=== PATIENT | male | born 1935 | race Caucasian/White ===

== ENCOUNTER 2016-09-14 09:10 | Emergency (ER) | payer MEDICARE ==
[2011-02-22 11:45] VITALS: BMI 24.8
[2016-09-14 09:38] LABS: BASOPHILS 0.4 % (0-2); EOSINOPHILS 4.7 % (0-7); HEMATOCRIT 41.1 % (42.0-54.0); HEMOGLOBIN 13.9 g/dL (13.5-17.5); IMMATURE GRANULOCYTES 0.4 % (0-5); LYMPHOCYTES 11.6 % (15-50); MCH 29.7 pg (26.0-34.0); MCHC 33.8 g/dL (31.0-37.0); MCV 87.8 fL (80.0-100.0); MEAN PLATELET VOLUME 10.1 fL (7.4-10.4); MONOCYTES 7.8 % (2-11); NEUTROPHILS 75.1 % (40-80); PLATELET COUNT 94 10x3/uL (130-400); RBC 4.68 10x6/uL (4.20-6.10); RDW 12.9 % (11.5-14.5); WBC 8.1 10x3/uL (4.8-10.8)
[2016-09-14 09:58] LABS: ALBUMIN 2.9 g/dL (3.4-5.0); ALKALINE PHOSPHATASE 124 U/L (46-116); ALT (SGPT) 28 U/L (10-68); BILIRUBIN - TOTAL 0.43 mg/dL (0.2-1.3); CALCIUM 9.1 mg/dL (8.5-10.1); CARBON DIOXIDE 30.4 mmol/L (21.0-32.0); CHLORIDE - SERUM 105 mmol/L (98-107); CREATININE - SERUM 1.6 mg/dL (0.6-1.3); POTASSIUM - SERUM 4.8 mmol/L (3.5-5.1); SODIUM 139 mmol/L (136-145); UREA NITROGEN 27 mg/dL (7-18); eGFR NON AFRICAN AMERICAN 44 mL/min (90-120)
[2016-09-14 10:02] LABS: AMYLASE - SERUM 47 U/L (25-115); CALC OSMOLALITY 288 mosm/kg (275-300); GLUCOSE 205 mg/dL (74-106); LIPASE 164 U/L (73-393); TROPONIN-I < 0.017 ng/mL (0.000-0.060)
== END 2016-09-14 12:35 | disposition home or self-care (01) ==
LOC: D.ER 09:10
PROVIDERS: Family Medicine
DX: K59.00 Constipation, unspecified (principal); K56.41 Fecal impaction; I10 Essential (primary) hypertension; E78.00 Pure hypercholesterolemia, unspecified; E11.9 Type 2 diabetes mellitus without complications; C64.9 Malignant neoplasm of unspecified kidney, except renal pelvis

== ENCOUNTER 2016-09-22 05:00 | Outpatient (CLI) | payer MEDICARE ==
[~2016-09-22] VITALS: Ht 180.3 cm; Wt 85.0 kg
--- NOTE | ~2016-09-22 | HEMODYNAMI ---
PATIENT:FLORENCE MOORE MEDICAL RECORD: [id number] : 37 [id number] ADMISSION DATE: 09/22/16 Generatedon:09/22/201615:35 Patient name: FLORENCE MOORE Patient #: [id number] SSN: : Date of study: 09/22/2016 Page: Of Hemodynamic Procedure Report Patient Data Patient Demographics Procedure consent was obtained First Name: FLORENCE Gender: Male Last Name: OSCAR : 1935 Middle Initial: D Age: 81 year(s) Patient #: [id number] Race: Unknown Additional ID: [id number] Contact details Address: [address] [place] [address] State: [place] City: [facility] Zip code: [address] Past Medical History Allergies: No known allergies Admission Admission Data Admission Date: 09/22/2016 Admission Time: 6:19 Admit Source: Emergency Insurance Payor: Private department health insurance Room #: D.2124 Height (in.): 71 BSA: 2.02 (m2) Height (cm.): 180.34 BMI: 25.1 (kg/m2) Weight (lbs.): 180 Weight (kg.): 81.65 Lab Results Lab Result Date: 09/22/2016 Lab Result Time: 0:00 Biochemistry Name Units Result Min Max Creatinine mg/dl 1.7 --(----)-* 0.6 1.3 CBC Name Units Result Min Max Hemoglobin g/dl 14 --(*---)-- 13.5 17.5 Procedure Procedure Types Cath Procedure Diagnostic Procedure [facility] w/Coronaries PCI Procedure Coronary Stent Initial Miscellaneous Procedures Moderate Sedation up to 30 minutes Procedure Description Procedure Date Procedure Date: 09/22/2016 Procedure Start Time: 15:06 Procedure End Time: 15:35 Procedure Staff Name Function Maya Smart RT Monitor Sotero Lombardo RN Nurse Naif Murphy MD Performing Physician Joel Sargent RT Scrub Seymour Michael RN Nurse Procedure Data Cath Procedure Fluoroscopy Diagnostic fluoroscopy Total fluoroscopy Time: 7.4 time: 7.4 min min Diagnostic fluoroscopy Total fluoroscopy dose: dose: 499.7 mGy 499.7 mGy Contrast Material Contrast Material Type Amount (ml) Isovue 300 112 Entry Location Entry Primary Successful Side Size Upsize Upsize Entry Closure Brewer ccessful Closure Location (Fr) 1 (Fr) 2 (Fr) Remarks Device Remarks Radial Right 6 Fr Mechanical artery Short Compression Estimated blood loss: 10 ml Diagnostic catheters Device Type Used For End Catheter Placement Medtronic Dexterity 5Fr LV Angiography TRAP 4.0 catheter (NO CHARGE) Medtronic Dexterity 5Fr Left Coronary TRAP 4.0 catheter (NO Angiography CHARGE) Medtronic Dexterity 5Fr Right Coronary TRAP 4.0 catheter (NO Angiography CHARGE) Medtronic Dexterity 5Fr LV Angiography Pigtail catheter (NO CHARGE) Procedure Complications No complications Procedure Medications Medication Administration Route Dosage Oxygen NC 2 l/min Heparin Flush Bag added to field 2 bags (1000units/500ml NS) 0.9% NaCl I.V. 100 ml/hr Radial Cocktail added to field 1 syringe (Verapomil 2mg/Nitro 400mcg/Heparin 1500units) Fentanyl I.V. 50 mcg Versed I.V. 1 mg Fentanyl I.V. 50 mcg Versed I.V. 1 mg Radial Cocktail added to field 1 syringe (Verapomil 2mg/Nitro 400mcg/Heparin 1500units) Heparin Bolus I.V. 4000 units Integrilin (Bolus I.V. 7.9 ml 2mg/ml) Integrilin (Bolus wasted 2.1 ml 2mg/ml) Plavix P.O. 600 mg Hemodynamics Rest BSA: 2.02 (m2) HGB: 14 (g/dl) O2 Consumption: Estimated: 212.42 (ml/min) O2 Cons umption indexed: Estimated:105.16 (ml/min/m) Heart Rate: 46 (bpm) Pressure Samples Time Site Value (mmHg) Purpose Heart Use Rate(bpm) 15:09 LV 105/-8,12 EDP 46 15:14 LV 141/9,15 EDP 52 15:15 AO 151/52(84) Pullback 47 15:15 LV 143/7,12 Pullback 47 Gradients Valve Time Site 1 Site 2 Mean SEP/DFP Peak To Heart Use (mmHg) (sec/min) Peak Rate (mmHg) (bpm) Aortic 15:15 LV AO 0 5 0 47 143/7,12 151/52(84) Calculations Valve P-P Mean Valve Index Valve Source Name Gradient Area Flow (cm2) Aortic 0 0 0 0 Snapshots Pre Cath Intra NCS Post Cath Vital Signs Time Heart Resp SPO2 NIBP (mmHg) Rhythm Pain Sedation Rate (ipm) (%) Status Level (bpm) 14:53:36 47 18 96 201/78(159) NSR 0 (11) 10(A) , No pain 15:05:04 46 18 95 182/75(144) NSR 0 (11) 10(A) , No pain 15:09:43 46 18 96 107/53(101) NSR 0 (11) 10(A) , No pain 15:14:56 46 18 93 137/58(110) NSR 0 (11) 9(A) , No pain 15:19:14 47 14 96 135/65(117) NSR 0 (11) 9(A) , No pain 15:23:35 50 16 95 156/75(132) NSR 0 (11) 9(A) , No pain 15:28:05 48 16 96 164/72(128) NSR 0 (11) 9(A) , No pain 15:33:33 48 15 96 154/67(132) NSR 0 (11) 10(A) , No pain Medications Time Medication Route Dose Verified Delivered Reason Note s Effectiveness by by 14:51:36 Oxygen NC 2 l/min Sotero Bey Per physician Grupo Lombardo RN RN 14:51:51 Heparin Flush added 2 bags Sotero Bey used for Bag to Grupo Lombardo RN procedure (1000units/500ml field CARSON NS) 14:52:07 0.9% NaCl I.V. 100 Sotero Bey Per physician ml/hr Grupo Lombardo RN RN 14:52:23 Radial Cocktail added 1 Sotero Bey used for (Verapomil to syringe Grupo Lombardo RN procedure 2mg/Nitro RN 400mcg/Hepari 15:07:58 Radial Cocktail added 1 Sotero Sotero used for (Verapomil to syringe Grupo Lombardo RN procedure 2mg/Nitro field CARSON 400mcg/Heparin 1500units) 15:09:56 Fentanyl I.V. 50 mcg Sotero Sotero for sedation Grupo Lombardo RN RN 15:10:08 Versed I.V. 1 mg Sotero Sotero for sedation Grupo Lombardo RN RN 15:14:29 Fentanyl I.V. 50 mcg Sotero Sotero for sedation Grupo Lombardo RN RN 15:14:35 Versed I.V. 1 mg Sotero Sotero for sedation Grupo Lombardo RN RN 15:15:25 Heparin Bolus I.V. 4000 Sotero Sotero for units Grupo Lombardo RN anticoagulation RN 15:16:18 Integrilin I.V. 7.9 ml Sotero Sotero for (Bolus 2mg/ml) Grupo Lombardo RN antiplatelet RN therapy 15:16:30 Integrilin wasted 2.1 ml Sotero Sotero for (Bolus 2mg/ml) Grupo Lombardo RN antiplatelet RN therapy 15:34:15 Plavix P.O. 600 mg Sotero Sotero for Grupo Lombardo RN antiplatelet RN therapy Procedure Log Time Note 14:34:13 Informed consent obtained and on chart 14:34:37 Sotero Lombardo RN sent for patient. Start room use. 14:41:58 Time tracking: Regular hours 14:42:01 Plan of Care:Hemodynamics will remain stable., Cardiac rhythm will remain stable., Comfort level will be maintained., Respiratory function will remain adequate., Patient/ family verbilizes understanding of procedure., Procedure tolerated without complication., Recovers from procedure without complications.. 14:42:49 Patient Height : 180.34 cm 14:42:53 Patient Weight : 81.65 kg 14:43:03 Admit Source: Emergency department 14:43:07 Insurance Payor : Private health insurance 14:43:24 Patient received from PCU to CCL 3 Alert and oriented. Tansferred to table in Supine position. 14:43:25 Warm blankets applied, and tavon hugger turned on for patient comfort. 14:43:26 ECG and BP/O2 sat monitors applied to patient. 14:43:26 Correct patient and procedure confirmed by team. 14:43:43 Full Disclosure recording started 14:44:02 H&P Date Dictated: 09/21/2016 Within 30 days and on chart.. 14:44:03 Pre-procedure instructions explained to patient. 14:44:04 Pre-op teaching completed and patient verbalized understanding. 14:44:05 Family in patients room. 14:51:36 Oxygen 2 l/min NC was administered by Sotero Lombardo RN; Per physician; 14:51:51 Heparin Flush Bag (1000units/500ml NS) 2 bags added to field was administered by Stoero Lombardo RN; used for procedure; 14:52:07 0.9% NaCl 100 ml/hr I.V. was administered by Sotero Lombardo RN; Per physician; 14:52:23 Radial Cocktail (Verapomil 2mg/Nitro 400mcg/Heparin 1500units) 1 syringe added to field was administered by Sotero Lombardo RN; used for procedure; 14:57:33 Patient NPO since Midnight. 14:57:39 Patient allergic to No known allergies 14:57:41 Is the patient allergic to Iodine/contrast media? No. 14:57:44 Is patient on blood thinner?No 14:57:45 Patient diabetic? Yes. 14:57:46 If diabetic: On Metformin? No 14:57:51 Snore? Yes 14:57:51 Previous problem with sedation/anesthesia? No ? 14:57:52 Sleep apnea? No 14:57:53 Deviated septum? No 14:57:54 Opens mouth fully? Yes 14:57:55 Sticks out tongue? Yes 14:57:58 Airway obstruction? Yes COPD 14:58:03 Dentures? Yes Out 14:58:08 Pre procedure: right dorsailis pedis pulse 2+ Normal; easily identifiable; not easily obliterated 14:58:10 Modified Pankaj's test Ulnar < 7 seconds 14:58:11 Patient pain scale 0/10 ?. 14:58:20 IV patent on arrival in left forearm with 0.9% NaCl at [facility]. 14:58:53 Lab Result : Hemoglobin 14 g/dl 14:58:53 Lab Result : Creatinine 1.7 mg/dl 14:58:57 Lab results completed and on chart. 14:59:02 Right Radial & Right Groin area was prepped with chlora-prep and draped in sterile fashion 14:59:03 Sharps counted by scrub and verified by R.N. 14:59:03 Alarms reviewed by R. N. 14:59:13 Use device set Radial Dx 14:59:14 Acist Syringe opened to sterile field. 14:59:15 Terumo 6Fr Slender Glidesheath opened to sterile field. 14:59:15 Bag Decanter opened to sterile field. 14:59:15 Medline Cath Pack opened to sterile field. 14:59:16 Acist Hand Control opened to sterile field. 14:59:16 St Praneeth 260cm J .035 wire opened to sterile field. 14:59:17 Tegaderm 4 x 4 opened to sterile field. 14:59:17 Acist Manifold opened to sterile field. 14:59:18 MBrace Wrist Support opened to sterile field. 15:01:57 Full Disclosure recording stopped 15:02:39 Vital chart was started 15:02:54 Full Disclosure recording started 15:02:58 Rhythm: sinus bradycardia 15:04:15 Final Timeout: patient, procedure, and site verified with staff and physician. All members of the team are in agreement. 15:04:19 Right Radial site verified by team. 15:04:23 Physical assessment completed. ASA score P 2 - A patient with mild systemic disease as per Naif Murphy MD. 15:04:27 Sedation plan: IV Moderate Sedation Versed, Fentanyl 15:05:32 Procedure started. 15:05:43 Baseline sample Acquired. 15:06:21 Local anesthetic to right radial artery with Lidocaine 2% by Naif Murphy MD.INITIAL ACCESS ONLY 15:07:12 Zero performed for pressure channel P1 15:07:29 A 6 Fr Short sheath was inserted into the Right Radial artery 15:07:58 Radial Cocktail (Verapomil 2mg/Nitro 400mcg/Heparin 1500units) 1 syringe added to field was administered by Sotero Lombardo RN; used for procedure; 15:08:06 A Medtronic Dexterity 5Fr TRAP 4.0 catheter (NO CHARGE) was advanced over the wire and used for LV Angiography. 15:09:08 LV gram done using LOMELI 15:09:09 LV hemodynamics recorded. 15:09:11 Injector settings: Ml/sec: 5, Volume: 15, 15:09:56 Fentanyl 50 mcg I.V. was administered by Sotero Lombardo RN; for sedation; 15:10:08 Versed 1 mg I.V. was administered by Sotero Lombardo RN; for sedation; 15:10:24 A Medtronic Dexterity 5Fr TRAP 4.0 catheter (NO CHARGE) was advanced over the wire and used for Left Coronary Angiography. 15:11:43 A Medtronic Dexterity 5Fr TRAP 4.0 catheter (NO CHARGE) was advanced over the wire and used for Right Coronary Angiography. 15:11:59 Catheter removed. 15:12:30 A Medtronic Dexterity 5Fr Pigtail catheter (NO CHARGE) was advanced over the wire and used for LV Angiography. 15:14:29 Fentanyl 50 mcg I.V. was administered by Sotero Lombardo RN; for sedation; 15:14:34 Injector settings: Ml/sec: 10, Volume: 20, 15:14:35 Versed 1 mg I.V. was administered by Sotero Lombardo RN; for sedation; 15:14:45 EF : 55 % 15:15:13 Catheter removed. 15:15:25 Heparin Bolus 4000 units I.V. was administered by Sotero Lombardo RN; for anticoagulation; 15:15:47 Swift [place] 300cm 0.014 guide wire opened to sterile field. 15:15:48 LOOKCAST BasixCompak Inflation Kit opened to sterile field. 15:16:18 Integrilin (Bolus 2mg/ml) 7.9 ml I.V. was administered by Sotero Lombardo RN; for antiplatelet therapy; 15:16:30 Integrilin (Bolus 2mg/ml) 2.1 ml wasted was administered by Sotero Lombardo RN; for antiplatelet therapy; 15:16:39 6 Fr XBLAD 3.5 guide catheter was inserted over the wire 15:16:45 Cordis 6FR XBLAD 3.5 guide catheter opened to sterile field. 15:18:53 [place] wire advanced. 15:21:04 Inflation Number: 1 A Medtronic Integrity 3.0 X 12 stent was prepped and advanced across the Prox LAD. The stent was deployed at 14 MAURIZIO for 0:37 (min:sec). 15:22:49 Swift Whisper J 300cm 0.014 guide wire opened to sterile field. 15:22:59 Wire removed. 15:23:07 Whisper wire advanced. 15:23:42 Wire redirected to Diag. 15:24:50 Stent catheter was removed intact over wire. 15:27:20 The [place] SwarmBuild Lynn 2.0 X 9 balloon was advanced and then removed because of failure to cross lesion 15:27:26 Wire removed. 15::27 Guide catheter removed. 15:27:45 Sheath removed intact; hemostasis achieved with Mechanical Compression to the Right Radial artery. 15::55 Terumo TR Band Standard opened to sterile field. 15:27:58 Procedure ended.(Physican Out) 15::31 Fluoroscopy time 07.40 minutes. 15::36 Fluoroscopy dose: 499.7 mGy 15::36 Flurop Dose total: 499.7 15::42 Contrast amount:Isovue 300 112ml. 15:29:43 Sharps counted by scrub and verified by R.N. 15:30:07 TR band inflated with 12cc of air. 15:30:08 Insertion/operative site no bleeding no hematoma. 15:30:16 Post right radial artery:stable, clean and dry 15:30:22 Post Procedure Pulses reassessed and unchanged 15::42 Post-procedure physical assessment completed. ASA score P 2 - A patient with mild systemic disease as per Naif Murphy MD. 15:30:50 Post procedure rhythm: unchanged. 15:30:53 Estimated blood loss: 10 ml 15:31:02 Post procedure instruction explained to patient.Patient verbalizes understanding. 15:31:02 Patient needs reinforcement of post procedure teaching. 15:31:17 Procedure type changed to Cath procedure, Diagnostic procedure, LHC, LHC w/Coronaries, PCI procedure, Coronary Stent Initial, Miscellaneous Procedures, Moderate Sedation up to 30 minutes 15:31:22 Procedure Complication : No complications 15:31:24 See physician's report for complete and final results. 15:32:27 Procedure and supply charges have been captured, reviewed, submitted and are correct. 15:34:15 Plavix 600 mg P.O. was administered by Sotero Lombardo RN; for antiplatelet therapy; 15:35:11 Vital chart was stopped 15:35:15 Report given to PCU. 15:35:18 Patient transfered to PCU with Bed. 15:35:29 Procedure ended. 15:35:29 Full Disclosure recording stopped 15:35:34 End room use (Document Last) Intervention Summary Intervention Notes Time ActionType Lesion and Equipment Action# Pressure Duration Attributes Used 15:21:04 Place stent Prox LAD Medtronic 1 14 00:37 Integrity 3.0 X 12 stent 15:27:20 Discard [place] Balloon Sci Lynn 2.0 X 9 balloon Device Usage Item Name Manufacture Quantity Catalog Number Hospital Part Current Mini mal Lot# / Charge Number Stock Stock Serial# Code Acist Acist 1 37131 828435 170156 [id number] 20 Syringe Medical Systems Inc Medline Cardinal 1 [id number] 379756 44713 570202 5 Cath Pack Health Bag Microtek 1 2002S 722307 81865 276635 5 Spatial Information Solutions Inc. Terumo 6Fr Terumo 1 [id number] 107885 795418 627125 [address] St Praneeth 1 [id number] 426480 879770 875513 30 260cm J .035 wire Acist Hand Acist 1 74934 610541 236814 255036 5 Control Medical Systems Inc Acist Acist 1 26645 689920 932723 906664 5 Manifold Medical Systems Inc Tegaderm 4 3M 1 1626W 986857 227454 687572 5 x 4 MBrace Advanced 1 140-0250-00 888199 19947 923256 5 Wrist Vascular Support Dynamics Medtronic Medtronic 1 [id number] 155793 089315 5 Dexterity 5Fr TRAP 4.0 catheter (NO CHARGE) Medtronic Medtronic 1 [id number] 943151 424893 5 Dexterity 5Fr Pigtail catheter (NO CHARGE) Swift Swift 1 [id number] 969702 260254 392807 1 [place] Vascular 300cm 0.014 guide wire Merit Merit 1 US1509 137785 963433 516339 15 [facility] Medical Inflation Kit Cordis 6FR Cardinal 1 [id number] 136931 868828 174115 10 XBLAD 3.5 Health guide catheter Medtronic Medtronic 1 [id number] 187320 745290 584508 3 [id number] Integrity 3.0 X 12 stent Swift Swift 1 [id number] 855600 776132 559577 5 Whisper J Vascular 300cm 0.014 guide wire Hamburg Sci Hamburg 1 [id number] 814195 937841 540026 1 [id number] Lynn Scientific 2.0 X 9 balloon Terumo TR Terumo 1 [id number] 054534 652331 111416 40 Band Standard Signature Audit Steward Stage Time Signature Unsigned Intra-Procedure 09/22/2016 Maya 3:35:45 PM Counts RT(R) Signatures Monitor : Maya Signature : Counts RT Date : Time : [address] [place] [address]
[2016-09-22 05:25] LABS: BASOPHILS 0.4 % (0-2); EOSINOPHILS 5.6 % (0-7); HEMATOCRIT 40.9 % (42.0-54.0); IMMATURE GRANULOCYTES 0.9 % (0-5); LYMPHOCYTES 17.4 % (15-50); MCH 29.9 pg (26.0-34.0); MCHC 34.2 g/dL (31.0-37.0); MCV 87.2 fL (80.0-100.0); MEAN PLATELET VOLUME 10.2 fL (7.4-10.4); MONOCYTES 9.6 % (2-11); NEUTROPHILS 66.1 % (40-80); PLATELET COUNT 96 10x3/uL (130-400); RBC 4.69 10x6/uL (4.20-6.10); RDW 12.8 % (11.5-14.5); WBC 7.5 10x3/uL (4.8-10.8)
[2016-09-22 05:59] LABS: ALBUMIN 2.8 g/dL (3.4-5.0); ALKALINE PHOSPHATASE 115 U/L (46-116); ALT (SGPT) 29 U/L (10-68); BILIRUBIN - TOTAL 0.41 mg/dL (0.2-1.3); CALC OSMOLALITY 286 mosm/kg (275-300); CALCIUM 9.2 mg/dL (8.5-10.1); CARBON DIOXIDE 30.7 mmol/L (21.0-32.0); CHLORIDE - SERUM 106 mmol/L (98-107); CREATININE - SERUM 1.7 mg/dL (0.6-1.3); GLUCOSE 171 mg/dL (74-106); POTASSIUM - SERUM 4.3 mmol/L (3.5-5.1); PROTEIN - SERUM 6.1 g/dL (6.4-8.2); SODIUM 140 mmol/L (136-145); UREA NITROGEN 24 mg/dL (7-18); eGFR NON AFRICAN AMERICAN 41 mL/min (90-120)
[2016-09-22 06:01] LABS: CHOL - HDL RATIO 2.7 ratio (2.3-4.9); CHOLESTEROL, TOTAL 112 mg/dL (0-200); CREATINE KINASE 74 UL (21-232); HDL CHOLESTEROL 41 mg/dL (32-96); LDL CHOLESTEROL 50 mg/dL (0-100); LDL-HDL RATIO 1.2 ratio (1.5-3.5); PRO BNP 353 pg/mL (0-450); TRIGLYCERIDE 106 mg/dL (30-200)
[2016-09-22 06:02] LABS: TROPONIN-I < 0.017 ng/mL (0.000-0.060)
[2016-09-22 06:05] LABS: PLATELET ESTIMATE DECREASED
[2016-09-22] MEDS ORDERED: CARDURA8 MG PO (07:36)
[2016-09-22] MEDS ORDERED: BETAPACE 80 MG80 MG PO (07:37)
[2016-09-22] MEDS ORDERED: CATAPRES0.2 MG PO (07:38)
[2016-09-22] MEDS ORDERED: DIOVAN320 MG PO (07:39)
[2016-09-22] MEDS ORDERED: CRESTOR40 MG PO (07:40)
[2016-09-22] MEDS ORDERED: ASPIRIN325 MG PO (07:42)
--- NOTE | 2016-09-22 08:10 | NUR ---
RECIEVED FROM ER. DENIES ANY NEEDS. CALL LIGHT IN REACH WITH SR UP. TELEMERTY SHOWSSB. SR UP WITH CALL LIGHT IN REACH
[2016-09-22 10:10] VITALS: BP 168/63
[2016-09-22 12:00] VITALS: BP 216/81
[2016-09-22 12:55] VITALS: BP 168/63; BMI 25.1
--- NOTE | 2016-09-22 13:10 | NUR ---
LYING QUIETLY. AWAITING CATH. WILL MONITOR
--- NOTE | 2016-09-22 13:31 | NUR ---
RATIONALE FOR SCD'S EXPLAINED. REFUSED SCD'S
[2016-09-22 14:49] VITALS: Ht 180.3 cm; Wt 85.0 kg
[2016-09-22 16:19] VITALS: BP 150/61
--- NOTE | 2016-09-22 18:59 | NUR ---
LYING QUIETLY. TR BAND ON. 05/26 AIR REMOVED. DENIES ANY NEEDS. TELEMERTY SHOWS SR WILL MONITOR
[2016-09-22 19:00] VITALS: BP 145/64
[2016-09-23] VITALS: BP 166/71
--- NOTE | 2016-09-23 01:48 | NUR ---
THIS PM PATIENT UP WITHOUT ASSISTANCE. TOOK HIS OWN PM MEDS. ALSO HAS AN INSULIN PUMP. NO DISTRESS. MONITOR SHOWS SBRADY AT RATE OF 42.
[2016-09-23 04:00] VITALS: BP 191/72
[2016-09-23 05:56] LABS: BASOPHILS 0.2 % (0-2); EOSINOPHILS 3.9 % (0-7); HEMATOCRIT 40.1 % (42.0-54.0); HEMOGLOBIN 13.1 g/dL (13.5-17.5); IMMATURE GRANULOCYTES 0.5 % (0-5); LYMPHOCYTES 12.2 % (15-50); MCH 29.1 pg (26.0-34.0); MCHC 32.7 g/dL (31.0-37.0); MCV 89.1 fL (80.0-100.0); MEAN PLATELET VOLUME 10.3 fL (7.4-10.4); MONOCYTES 11.3 % (2-11); NEUTROPHILS 71.9 % (40-80); PLATELET COUNT 84 10x3/uL (130-400); RDW 13.1 % (11.5-14.5); WBC 9.3 10x3/uL (4.8-10.8)
[2016-09-23 06:24] LABS: ANION GAP 8.6 mmol/L (8-16); CALCIUM 8.5 mg/dL (8.5-10.1); CARBON DIOXIDE 29.7 mmol/L (21.0-32.0); CREATININE - SERUM 1.6 mg/dL (0.6-1.3); POTASSIUM - SERUM 4.3 mmol/L (3.5-5.1)
--- NOTE | 2016-09-23 07:30 | NUR ---
RESTING QUIETLY EYES CLOSED RESP UNLABORED NAD NOTED AT THIS TIME
[2016-09-23 08:03] VITALS: BP 212/78
--- NOTE | 2016-09-23 08:24 | NUR ---
ASSESSMENT COMPLETED. TELEMERTY SHOWS SB AT 56. TR BAND SITE WITH NO REDDNESS OR EDEMA. O2 AT 2 L/M PER NC. INSULIN PUMP ON. LEFT AC SL. UP AB BRANDON. SR UP WITH CALL LIGHT IN REACH
[2016-09-23] MEDS ORDERED: PLAVIX75 MG PO (11:56)
[2016-09-23 11:58] VITALS: BP 208/70
--- NOTE | 2016-09-23 12:27 | NUR ---
PT DISCHARGED. IV DCD WITH TIP INTACT. INSTRUCTIONS GIVEN TO PT AND . TO PRIVATE CAR PER WHEEL CHAIR
--- NOTE | 2016-09-23 14:01 | OP ---
PATIENT NAME: FLORENCE MOORE MEDICAL RECORD: [id number] :37 LOCATION:D. D.2124 ADMISSION DATE:09/22/16 SURGEON: ABIGAIL SALGADO MD DATE OF OPERATION: 09/22/2016 PROCEDURE: Left heart catheterization, selective coronary angiography, right femoral approach. CATHETERS: A 5-Setswana sheath, Femi catheter. The procedure was well tolerated. We proceeded immediately to stenting of the LAD. FINDINGS: Left ventriculography in 30-degree LOMELI view: Normal wall motion and normal systolic function. CORONARY ANATOMY: Left main: Left main is free of disease. LAD: Has a stenosis about 80% in its mid portion. There is a medium sized diagonal with 99% ostial stenosis. CIRCUMFLEX: Circumflex left dominant system free of disease. RIGHT CORONARY ARTERY: Rudimentary and is basically subtotalled. PLAN: Intervention of LAD momentarily. DESCRIPTION OF PROCEDURE: Using an indwelling sheath, an XB LAD guide catheter provided good guide catheter support followed by a 300 cm [place] XT wire was placed across the site of the occluded LAD down a portion of this vessel. A 3.0 x 12 Integrity nondrug-eluting stent was inflated up to 14 atmospheres for 45 seconds. Final angiography shows excellent resolution of 80% LAD stenosis, no significant residual. We were then able to use a Whisper wire across the ostium of the diagonal; however, we were not able to place the balloon across the lesion. FINAL IMPRESSION: Residual disease of the small diagonal branch as well as a residual right, successful PTCA stenting of the LAD, 80% stenosis, no significant residual. Sheath was closed with ExoSeal device. Integrilin was used in the case. Plavix was loaded in the lab. TRANSINT:[id number] Voice Confirmation ID: [id number] DOCUMENT ID: [id number] ABIGAIL SALGADO MD at 1401 CC: [id number] DICTATION DATE: 09/22/16 1536 FISCAL TECHNICIAN: 09/23/16 0145 DIS IN 09/23/16 [facility] [address] [place] [address]
== END 2016-09-23 12:40 | disposition home or self-care (01) ==
LOC: OBSVTIME → D.CATH 05:00 → D.ER 05:00 → D.M2 06:19 → D.ER 06:19 → OBSVTIME 06:19 → EDSTATUS 08:30 → D.CATH 09-23 12:40 → D.M2 09-23 12:40
PROVIDERS: Family Medicine; Family Medicine Adult Medicine; Internal Medicine Cardiovascular Disease
DX: I25.110 Atherosclerotic heart disease of native coronary artery with unstable angina pectoris (principal); Z95.5 Presence of coronary angioplasty implant and graft; E11.40 Type 2 diabetes mellitus with diabetic neuropathy, unspecified; E11.22 Type 2 diabetes mellitus with diabetic chronic kidney disease; I12.9 Hypertensive chronic kidney disease with stage 1 through stage 4 chronic kidney disease, or unspecified chronic kidney disease; N18.9 Chronic kidney disease, unspecified; E11.65 Type 2 diabetes mellitus with hyperglycemia; J44.9 Chronic obstructive pulmonary disease, unspecified; I48.0 Paroxysmal atrial fibrillation; Z87.891 Personal history of nicotine dependence

== ENCOUNTER 2017-10-03 15:56 | Emergency (ER) | payer MEDICARE ==
[2016-09-22 14:49] VITALS: BMI 25.1
[~2017-10-03 15:56] MED LIST: ASPIRIN325 MG PO; BETAPACE 80 MG80 MG PO; CARDURA8 MG PO; CATAPRES0.2 MG PO; CRESTOR40 MG PO; DIOVAN320 MG PO; PLAVIX75 MG PO
[2017-10-03 18:35] LABS: BASOPHILS 0.3 % (0-2); EOSINOPHILS 3.4 % (0-7); HEMATOCRIT 41.2 % (42.0-54.0); HEMOGLOBIN 13.7 g/dL (13.5-17.5); IMMATURE GRANULOCYTES 0.3 % (0-5); LYMPHOCYTES 9.8 % (15-50); MCH 28.5 pg (26.0-34.0); MCHC 33.3 g/dL (31.0-37.0); MCV 85.8 fL (80.0-100.0); MEAN PLATELET VOLUME 9.6 fL (7.4-10.4); MONOCYTES 9.1 % (2-11); NEUTROPHILS 77.1 % (40-80); PLATELET COUNT 101 10x3/uL (130-400); RDW 13.1 % (11.5-14.5); WBC 8.6 10x3/uL (4.8-10.8)
== END 2017-10-03 20:40 | disposition home or self-care (01) ==
LOC: D.ER 15:56
PROVIDERS: Nurse Practitioner Family
DX: K59.00 Constipation, unspecified (principal); E11.9 Type 2 diabetes mellitus without complications; I10 Essential (primary) hypertension; Z85.528 Personal history of other malignant neoplasm of kidney; Z90.5 Acquired absence of kidney

== ENCOUNTER → 2017-10-07 13:23 | Outpatient (CLI) | payer MEDICARE ==
[2016-09-22 14:49] VITALS: BMI 25.1
[2017-10-13 16:13] LABS: IMMUNOGLOBULIN E 70 IU/mL (0-100)
== END | disposition home or self-care (01) ==
LOC: D.LAB 13:00 → D.RT 14:00
PROVIDERS: Internal Medicine Pulmonary Disease
DX: J44.9 Chronic obstructive pulmonary disease, unspecified (principal)

== ENCOUNTER → 2018-04-26 10:13 | Outpatient (CLI) | payer MEDICARE ==
[2016-09-22 14:49] VITALS: BMI 25.1
== END | disposition home or self-care (01) ==
LOC: D.RAD 10:13
DX: J44.1 Chronic obstructive pulmonary disease with (acute) exacerbation (principal)

== ENCOUNTER 2020-07-30 14:33 | Inpatient (IN) | payer OTHER ==
[~2020-07-30] VITALS: Ht 180.3 cm; Wt 68.0 kg
[2020-07-30 15:06] LABS: BASOPHILS 0.2 % (0-2); EOSINOPHILS 14.3 % (0-7); HEMATOCRIT 25.9 % (42.0-54.0); HEMOGLOBIN 8.4 g/dL (13.5-17.5); IMMATURE GRANULOCYTES 0.5 % (0-5); LYMPHOCYTE ABS# 0.65 10x3/uL (1.32-3.57); MCH 27.3 pg (26.0-34.0); MCHC 32.4 g/dL (31.0-37.0); MCV 84.1 fL (80.0-100.0); MEAN PLATELET VOLUME 9.2 fL (7.4-10.4); MONOCYTES 9.4 % (2-11); NEUTROPHIL ABS# 2.41 10x3/uL (1.78-5.38); NEUTROPHILS 59.6 % (40-80); RBC 3.08 10x6/uL (4.20-6.10); RDW 16.3 % (11.5-14.5); WBC 4.1 10x3/uL (4.8-10.8)
[2020-07-30 15:07] LABS: PLATELET COUNT 78 10x3/uL (130-400)
[2020-07-30 15:28] LABS: BILIRUBIN NEGATIVE (NEGATIVE); KETONE NEGATIVE (NEGATIVE); NITRITE NEGATIVE (NEGATIVE); UROBILINOGEN NORMAL mg/dL (< 2)
[2020-07-30 15:29] LABS: BACTERIA MODERATE HPF (NONE SEEN); WHITE CELLS - URINE >50 HPF (0-1)
[2020-07-30 15:32] LABS: CALC OSMOLALITY 298 mosm/kg (275-300); CALCIUM 8.6 mg/dL (8.5-10.1); CARBON DIOXIDE 21.4 mmol/L (21.0-32.0); CHLORIDE - SERUM 103 mmol/L (98-107); GLUCOSE 188 mg/dL (74-106); POTASSIUM - SERUM 4.2 mmol/L (3.5-5.1); SODIUM 137 mmol/L (136-145); UREA NITROGEN 68 mg/dL (7-18); eGFR NON AFRICAN AMERICAN 12 mL/min (90-120)
[2020-07-30 15:36] LABS: ALBUMIN 2.8 g/dL (3.4-5.0); ALKALINE PHOSPHATASE 87 U/L (30-120); ALT (SGPT) 29 U/L (10-68); BILIRUBIN - TOTAL 0.31 mg/dL (0.2-1.3); MAGNESIUM - SERUM 1.9 mg/dL (1.8-2.4); PROTEIN - SERUM 6.7 g/dL (6.4-8.2)
[2020-07-30 15:39] LABS: INR 1.06 (0.85-1.17); PROTIME 12.8 SECONDS (11.6-15.0)
[2020-07-30 15:40] LABS: APTT 33.7 SECONDS (22.8-39.4)
[2020-07-30 15:41] LABS: TROPONIN-I < 0.017 ng/mL (0.000-0.060)
[2020-07-30 15:58] LABS: PLATELET ESTIMATE DECREASED
[2020-07-30 16:07] VITALS: BP 168/70
[2020-07-30 16:13] LABS: % SATURATION 22 % (15-55); IRON 46 ug/dl (35-150); TOTAL IRON BIND CAPACITY 201 ug/dl (260-445); UNSAT IRON BIND CAPACITY 155 ug/dl (150-375)
[2020-07-30 17:14] VITALS: BP 160/70
--- NOTE | 2020-07-30 17:55 | NUR ---
RECEIVED PATIENT FROM ER VIA WHEELCHAIR. PATIENT WALKS WELL FROM CHAIR TO BED. PATIENT HAS ROLLING WALKER IN ROOM. PLAN OF CARE REVIEWED AND ASSESSMENT HAS BEEN COMPLETED. NAD NOTED. CALL LIGHT IN REACH.
[2020-07-30] MEDS ORDERED: GLUCERNA 1 CAL237 ML PO (18:10)
[2020-07-30] MEDS ORDERED: ADVAIR 250-501 EAC1 POINH (18:11)
[2020-07-30] MEDS ORDERED: CHRONULAC30 ML PO ×2 (18:11→18:13)
[2020-07-30] MEDS ORDERED: PROVENTIL/2.5 MG/3 M POINH (18:14)
[2020-07-30] MEDS ORDERED: FLUTICASONE PRO16 GM NASAL (18:14)
[2020-07-30] MEDS ORDERED: CLARITIN 10 MG10 MG PO (18:14)
[2020-07-30] MEDS ORDERED: NEURONTIN 300300 MG PO (18:15)
[2020-07-30] MEDS ORDERED: LASIX40 MG PO (18:16)
[2020-07-30] MEDS ORDERED: LANTUS INS100 UNITS/ SC (18:16)
[2020-07-30] MEDS ORDERED: REQUIP0.25 MG PO (18:17)
[2020-07-30 18:28] VITALS: BP 180/70; Ht 180.3 cm; Wt 68.0 kg
--- NOTE | 2020-07-30 19:05 | NUR ---
LYING IN BED AWAKE, ALERT, ORIENTED. RESP EVEN AND UNLABORED--NO DISTRESS NOTED.
--- NOTE | 2020-07-30 19:05 | NUR ---
PT HAS SCD'S ON
[2020-07-30 19:44] LABS: PHOSPHOROUS 7.1 mg/dL (2.5-4.9)
[2020-07-30 20:00] VITALS: BP 170/54
[2020-07-31 04:00] VITALS: BP 172/65
--- NOTE | 2020-07-31 05:00 | NUR ---
SITTING UP IN BED AWAKE, ALERT, ORIENTED. ASSISTED PT UP TO TOILET--NO FURTHER NEEDS VOICED--PT RESTED WELL LAST NIGHT.
--- NOTE | 2020-07-31 05:58 | NUR ---
SPOKE TO KEN--NEW ORDER TO PLACE CONSULT FOR DR CHAMBERLAIN ADDED TO PT'S CHART.
[2020-07-31 06:27] LABS: ALBUMIN 2.5 g/dL (3.4-5.0); ANION GAP 15.1 mmol/L (8-16); BILIRUBIN - TOTAL 0.26 mg/dL (0.2-1.3); CALCIUM 8.6 mg/dL (8.5-10.1); CARBON DIOXIDE 21.2 mmol/L (21.0-32.0); POTASSIUM - SERUM 4.3 mmol/L (3.5-5.1); PROTEIN - SERUM 6.1 g/dL (6.4-8.2)
[2020-07-31 06:29] LABS: BASOPHILS 0.3 % (0-2); EOSINOPHILS 16.6 % (0-7); HEMATOCRIT 25.1 % (42.0-54.0); IMMATURE GRANULOCYTES 0.5 % (0-5); LYMPHOCYTE ABS# 0.69 10x3/uL (1.32-3.57); LYMPHOCYTES 18.2 % (15-50); MCH 26.8 pg (26.0-34.0); MCHC 31.9 g/dL (31.0-37.0); MCV 84.2 fL (80.0-100.0); MEAN PLATELET VOLUME 9.7 fL (7.4-10.4); NEUTROPHIL ABS# 2.07 10x3/uL (1.78-5.38); NEUTROPHILS 54.4 % (40-80); PLATELET COUNT 88 10x3/uL (130-400); RBC 2.98 10x6/uL (4.20-6.10); RDW 16.4 % (11.5-14.5); WBC 3.8 10x3/uL (4.8-10.8)
[2020-07-31 07:59] VITALS: BP 109/55
[2020-07-31 11:00] VITALS: BP 130/60
--- NOTE | 2020-07-31 18:17 | NUR ---
PT HAD BLADDER SCANNED AND HAD 1ST RESIDUAL AMOUNT OF APPROXIMATELY 340 ML. PT HAD BLADDER SCANNED A 2ND TIME ABOUT 4 HOURS LATER AND HAD A RESIDUAL AMOUNT OF APPROXIMATELY 89 ML.
--- NOTE | 2020-07-31 18:53 | NUR ---
DR LARKIN HERE TO SEE PT AND D/C'D IV FLUIDS AT THIS TIME.
[2020-07-31 20:00] VITALS: BP 101/53
--- NOTE | 2020-07-31 22:11 | NUR ---
REPORT RECEIVED, WILL CONT POC. PT A&O, UP IN BED WATCHING TV. NO S/S OF DISTRESS OBSERVED. RR EVEN AND UNLABORED ON RA. BED LOCKED AND LOWERED, CL IN REACH. ASSESSMENT COMPLETED. WILL CONT TO MONITOR.
--- NOTE | 2020-08-01 01:57 | NUR ---
I have reviewed this patient and I concur with the Shift Assessment completed by the Licensed Practical Nurse today this shift.
[2020-08-01 04:00] VITALS: BP 125/62
[2020-08-01 08:00] VITALS: BP 177/61
[2020-08-01 10:29] LABS: BASOPHILS 0.3 % (0-2); HEMATOCRIT 25.2 % (42.0-54.0); IMMATURE GRANULOCYTES 0.3 % (0-5); LYMPHOCYTE ABS# 0.63 10x3/uL (1.32-3.57); MCHC 31.7 g/dL (31.0-37.0); MCV 85.1 fL (80.0-100.0); MEAN PLATELET VOLUME 9.3 fL (7.4-10.4); MONOCYTES 7.5 % (2-11); NEUTROPHIL ABS# 2.02 10x3/uL (1.78-5.38); NEUTROPHILS 60.9 % (40-80); PLATELET COUNT 83 10x3/uL (130-400); RBC 2.96 10x6/uL (4.20-6.10); RDW 16.6 % (11.5-14.5); WBC 3.3 10x3/uL (4.8-10.8)
[2020-08-01 10:39] LABS: ANION GAP 13.4 mmol/L (8-16); CALCIUM 8.3 mg/dL (8.5-10.1); CARBON DIOXIDE 22.9 mmol/L (21.0-32.0); POTASSIUM - SERUM 4.3 mmol/L (3.5-5.1)
[2020-08-01 10:51] LABS: ALBUMIN 2.6 g/dL (3.4-5.0); BILIRUBIN - TOTAL 0.31 mg/dL (0.2-1.3); PROTEIN - SERUM 5.7 g/dL (6.4-8.2)
[2020-08-01 14:02] LABS: PLATELET ESTIMATE DECREASED
--- NOTE | 2020-08-01 14:24 | NUR ---
I have reviewed this patient and I concur with the Shift Assessment completed by the Licensed Practical Nurse today this shift.
[2020-08-01 15:00] VITALS: BP 120/70
--- NOTE | 2020-08-01 17:50 | NUR ---
PT REFUSED TO TAKE INSULIN WITH HIS BLOOD SUGAR OF 185 AT 1630 DUE TO HIM HAVING TO BE NPO FOR TESTING IN THE AM (CT GUIDED BONE MARROW BIOPSY AND ALL INDICATED PROCEDURES WITH MODERATE SEDATION) PT WAS AFRAID HIS SUGAR WOULD BOTTOM OUT LIKE IT HAS ON PREVIOUS OCCASIONS
--- NOTE | 2020-08-01 17:57 | MORECARE ---
CASE MANAGEMENT DISCHARGE SUMMARY PATIENT: FLORENCE MOORE UNIT: [id number] ADM DATE: 07/30/20 AGE: 85 : 37 SEX: M ROOM/BED: D.2134 AUTHOR: HELENA WYLIE PHYSICIAN: REFERRING PHYSICIAN: ZIA BULLOCK MD DATE OF SERVICE: 08/01/20 Discharge Plan Patient Name: FLORENCE MOORE Facility: [facility]:[place] : 1935 Planned Disposition: Home with Hospice Anticipated Discharge Date: Discharge Date: Expected LOS: Initial Reviewer: [email or web address] Initial Review Date: 08/01/2020 Generated: 08/01/20 6:56 pm Patient Name: FLORENCE MOORE Page [id number] at 1757 All edits/amendments must be made on the electronic document DICTATION DATE: 08/01/201755 EFFICIENCY MINER: LISA 08/01/201755 RPT#: [id number] DC DATE: STATUS: ADM IN [facility] [address] [place] [address] END OF REPORT
--- NOTE | 2020-08-01 18:01 | NUR ---
NPO SIGN HAS BEEN PLACED ON PT'S DOOR, AND REPORT WILL BE PASSED ALONG TO ONCOMING NURSE.
--- NOTE | 2020-08-01 18:04 | NUR ---
PT HAS BEEN ENCOURAGED TO USED HIS SPIROMETER EVERY 2 HOURS. 1ST TIME PT REACHED 1550 2ND TIME 1500 3RD TIME 1550
--- NOTE | 2020-08-01 18:04 | MORECARE ---
CASE MANAGEMENT DISCHARGE SUMMARY PATIENT: FLORENCE MOORE UNIT: [id number] ADM DATE: 07/30/20 AGE: 85 : 36 SEX: M ROOM/BED: D.7407 AUTHOR: DEJANDOC PHYSICIAN: REFERRING PHYSICIAN: ZIA BULLOCK MD DATE OF SERVICE: 08/01/20 Discharge Plan Patient Name: FLORENCE MOORE Facility: [facility]:[place] : 1935 Planned Disposition: Home with Hospice Anticipated Discharge Date: Discharge Date: Expected LOS: Initial Reviewer: [email or web address] Initial Review Date: 08/01/2020 Generated: 08/01/20 7:03 pm Comments DCP- Discharge Planning Updated by [email or web address]: Ute Cabrales on 08/01/20 5:[address] Patient Name: FLORENCE MOORE Admission Status: ER Accout number: [id number] Admission Date: 07-30-2020 : 1935 Admission Diagnosis:THROMBOCYTOPENIA, UNSPECIFIED Attending: ZIA JOHNSON Current LOS: 2 Anticipated DC Date: Planned Disposition: Home with Hospice Primary Insurance: [employer] Discharge Planning Comments: DC PLAN: Home with resumption of [facility] ANTICIPATED DC NEEDS: No needs CM met with patient to complete initial dc planning assessment. CM educated patient on the CM role and verbal consent given by patient to complete assessment. CM verified patient's address, phone number, and emergency contact phone numbers. Patient lives at home with his spouse. At discharge patient plans to return and feels this is a safe discharge. CM discussed availability of home health, rehab services, and medical equipment. Patient denied known discharge needs at this time. Transportation provider at discharge will be his spouse. He states that he also has 2 close friends that help him and may transport him home. He states he has [facility] and will resume it on discharge. I called [facility] and spoke with Sheri. Sheri states they have revoked for hospitalization and they will accept him back on discharge. Sheri states she has informed the patient if he would like the BM biopsy done while hospitalized, that is fine. Patient states he does want the bone marrow biopsy done, because he wants the reason he came in here to be treated. CM will continue to follow and will assist as needed with dc plans/needs. Tree Chipper: Ute Samra DCPIA - Discharge Planning Initial Assessment Updated by [email or web address]: Ute Cabrales on 08/01/20 5:57 pm * Is the patient Alert and Oriented? Yes * How many steps to enter\exit or inside your home? 0/0 * PCP Dr. Farrell * [facility] * Preadmission Environment Home with Family * ADLs Partial Dependent * Partial ADLs (Assistance needed) Ambulation Bathing Dressing * Equipment Oxygen Walker * List name and contact numbers for known caregivers / representatives who currently or will assist patient after discharge: Julia Moore - [facility] - [phone] * Verbal permission to speak to the caregivers and representatives has been obtained from the patient. Yes * Community resources currently utilized [facility]osp[facility] * Please name any agencies selected above. [facility] * Additional services required to return to the preadmission environment? No * Can the patient safely return to the preadmission environment? Yes * Has this patient been hospitalized within the prior 30 days at any hospital? No Coverage Notice Reviewer: [id number] - Ute Cabrales Notice Issued Date-Time: 08/01/2020 18:03 Notice Type: Patient Choice Letter Notice Delivered To: Patient Relationship to Patient: Self Trailer Sections Assembler Name: Delivery Method: HAND - Hand Delivered Jeannie Days: Prior Verbal Notification: Recipient Understood Notice: Yes Recipient Signature: Yes Med Rec Note Co-signed by Attending: Coverage Notice Comment: Home hospice with [facility] Last DP export: 08/01/20 4:57 p Patient Name: FLORENCE MOORE Page [phone] at 1804 All edits/amendments must be made on the electronic document DICTATION DATE: 08/01/201803 PLANER SETTER: LISA 08/01/201803 RPT#: [id number] DC DATE: STATUS: ADM IN [facility] [address] [place] [address] END OF REPORT
[2020-08-01 20:00] VITALS: BP 178/60
--- NOTE | 2020-08-01 23:11 | NUR ---
REPORT RECEIVED, WILL CONT POC. PT A&O. NO S/S OF DISTRESS OBSERVED. RR EVEN AND UNLABORED ON RA. BED LOCKED AND LOWERED, CL IN REACH. ASSESSMENT COMPLETED AT THIS TIME. WILL CONT TO MONITOR.
[2020-08-02 04:00] VITALS: BP 122/59
[2020-08-02 04:38] LABS: BASOPHILS 0.3 % (0-2); EOSINOPHILS 13.4 % (0-7); HEMATOCRIT 25.1 % (42.0-54.0); IMMATURE GRANULOCYTES 0.3 % (0-5); LYMPHOCYTE ABS# 0.72 10x3/uL (1.32-3.57); LYMPHOCYTES 19.3 % (15-50); MCH 26.9 pg (26.0-34.0); MCHC 31.9 g/dL (31.0-37.0); MCV 84.5 fL (80.0-100.0); MEAN PLATELET VOLUME 9.4 fL (7.4-10.4); MONOCYTES 6.4 % (2-11); NEUTROPHIL ABS# 2.26 10x3/uL (1.78-5.38); NEUTROPHILS 60.3 % (40-80); PLATELET COUNT 87 10x3/uL (130-400); RBC 2.97 10x6/uL (4.20-6.10); RDW 16.7 % (11.5-14.5); WBC 3.7 10x3/uL (4.8-10.8)
[2020-08-02 04:46] LABS: PLATELET ESTIMATE DECREASED
[2020-08-02 04:47] LABS: APTT 37.7 SECONDS (22.8-39.4); INR 1.25 (0.85-1.17); PROTIME 14.6 SECONDS (11.6-15.0)
[2020-08-02 05:09] LABS: ALBUMIN 2.4 g/dL (3.4-5.0); ANION GAP 16.6 mmol/L (8-16); BILIRUBIN - TOTAL 0.23 mg/dL (0.2-1.3); CALCIUM 8.6 mg/dL (8.5-10.1); CARBON DIOXIDE 19.2 mmol/L (21.0-32.0); CREATININE - SERUM 4.9 mg/dL (0.6-1.3); MAGNESIUM - SERUM 1.8 mg/dL (1.8-2.4); POTASSIUM - SERUM 4.8 mmol/L (3.5-5.1); PROTEIN - SERUM 5.9 g/dL (6.4-8.2)
--- NOTE | 2020-08-02 05:17 | NUR ---
RECEIVED [facility] OF [facility]. EXPLAINED TO PT. PT SELF ADMINISTERED 8 U OF INSULIN.
[2020-08-02 08:27] VITALS: BP 150/56
[2020-08-02 09:50] VITALS: BP 150/52
[2020-08-02 10:05] VITALS: BP 153/63
[2020-08-02 10:20] VITALS: BP 153/63
[2020-08-02 10:35] VITALS: BP 145/50
--- NOTE | 2020-08-02 13:31 | NUR ---
SALINE LOCK REMOVED, DISCHARGE PAPERS DISCUSSED, AND TO CAR VIS WHEELCHAIR.
--- NOTE | 2020-08-02 19:12 | MORECARE ---
CASE MANAGEMENT DISCHARGE SUMMARY PATIENT: FLORENCE MOORE UNIT: [id number] ADM DATE: 07/30/20 AGE: 85 : 36 SEX: M ROOM/BED: D.3765 AUTHOR: HELENA WYLIE PHYSICIAN: REFERRING PHYSICIAN: ZIA BULLOCK MD DATE OF SERVICE: 08/02/20 Discharge Plan Patient Name: FLORENCE MOORE Facility: [facility]:[place] : 1935 Planned Disposition: Home with Hospice Anticipated Discharge Date: Discharge Date: 08/02/2020 Expected LOS: Initial Reviewer: [email or web address] Initial Review Date: 08/01/2020 Generated: 08/02/20 8:11 pm Comments DCP- Discharge Planning Updated by [email or web address]: Bailee Ferrara on 08/02/20 6:[address] CM called [facility] was notified of discharge and they are planning to readmit when patient arrives to home. DCP- Discharge Planning Updated by [email or web address]: Ute Cabrales on 08/01/20 5:[address] Patient Name: FLORENCE MOORE Admission Status: ER Accout number: [id number] Admission Date: 07-30-2020 : 1935 Admission Diagnosis:THROMBOCYTOPENIA, UNSPECIFIED Attending: ZIA JOHNSON Current LOS: 2 Anticipated DC Date: Planned Disposition: Home with Hospice [facility] [employer] [facility] Discharge Planning Comments: DC PLAN: Home with resumption of [facility] ANTICIPATED DC NEEDS: No needs CM met with patient to complete initial dc planning assessment. CM educated patient on the CM role and verbal consent given by patient to complete assessment. CM verified patient's address, phone number, and emergency contact phone numbers. Patient lives at home with his spouse. At discharge patient plans to return and feels this is a safe discharge. CM discussed availability of home health, rehab services, and medical equipment. Patient denied known discharge needs at this time. Transportation provider at discharge will be his spouse. He states that he also has 2 close friends that help him and may transport him home. He states he has [facility] and will resume it on discharge. I called [facility] and spoke with Sheri. Sheri states they have revoked for hospitalization and they will accept him back on discharge. Sheri states she has informed the patient if he would like the BM biopsy done while hospitalized, that is fine. Patient states he does want the bone marrow biopsy done, because he wants the reason he came in here to be treated. CM will continue to follow and will assist as needed with dc plans/needs. Churn Tender: Ute Cabrales DCPIA - Discharge Planning Initial Assessment Updated by [email or web address]: Ute Cabrales on 08/01/20 5:57 pm * Is the patient Alert and Oriented? Yes * How many steps to enter\exit or inside your home? 0/0 * PCP Dr. Farrell * [facility] * Preadmission Environment Home with Family * ADLs Partial Dependent * Partial ADLs (Assistance needed) Ambulation Bathing Dressing * Equipment Oxygen Walker * List name and contact numbers for known caregivers / representatives who currently or will assist patient after discharge: Julia Moore - [facility] - [phone] * Verbal permission to speak to the caregivers and representatives has been obtained from the patient. Yes * Community resources currently utilized [facility]osp[facility] Home * Please name any agencies selected above. [facility] * Additional services required to return to the preadmission environment? No * Can the patient safely return to the preadmission environment? Yes * Has this patient been hospitalized within the prior 30 days at any hospital? No Coverage Notice Reviewer: [id number] - Ute Cabrales Notice Issued Date-Time: 08/01/2020 18:03 Notice Type: Patient Choice Letter Notice Delivered To: Patient Relationship to Patient: Self Cashier Greeter Name: Delivery Method: HAND - Hand Delivered Jeannie Days: Prior Verbal Notification: Recipient Understood Notice: Yes Recipient Signature: Yes Med Rec Note Co-signed by Attending: Coverage Notice Comment: Home hospice with [facility] Last DP export: 08/01/20 5:04 p Patient Name: FLORENCE MOORE Page [phone] at 1912 All edits/amendments must be made on the electronic document DICTATION DATE: 08/02/201911 CREATIVE SERVICES DESIGNER: LISA 08/02/201911 RPT#: [id number] DC DATE:08/02/20 STATUS: DIS IN [facility] [address] [place] [address] END OF REPORT
== END 2020-08-02 13:33 | disposition home health service (06) | DRG 809 ==
LOC: D.ER 14:33 → D.M2 17:23
PROVIDERS: Family Medicine; General Practice; Internal Medicine Nephrology; ADMIT Family Medicine Adult Medicine; ATTEND Family Medicine Adult Medicine
PROC: 07DR3ZX Extraction of Iliac Bone Marrow, Percutaneous Approach, Diagnostic (ICD-10-PCS; principal; 2020-08-02 09:00)
DX: D61.818 Other pancytopenia (principal); N17.9 Acute kidney failure, unspecified; N39.0 Urinary tract infection, site not specified; E11.22 Type 2 diabetes mellitus with diabetic chronic kidney disease; I12.9 Hypertensive chronic kidney disease with stage 1 through stage 4 chronic kidney disease, or unspecified chronic kidney disease; N18.9 Chronic kidney disease, unspecified; J44.9 Chronic obstructive pulmonary disease, unspecified; D63.1 Anemia in chronic kidney disease; E11.65 Type 2 diabetes mellitus with hyperglycemia; I25.10 Atherosclerotic heart disease of native coronary artery without angina pectoris; L40.9 Psoriasis, unspecified; N40.0 Benign prostatic hyperplasia without lower urinary tract symptoms; E11.40 Type 2 diabetes mellitus with diabetic neuropathy, unspecified; Z90.5 Acquired absence of kidney